=== PATIENT | male | born 1985 | race Hispanic/Latino ===

== ENCOUNTER 2020-10-25 17:55 | Emergency (ER) | payer OTHER ==
[~2020-10-25] VITALS: Ht 193 cm; Wt 80.7 kg
[2020-10-25] MEDS ORDERED: BASAGLAR K100 UNIT/1 SQ (19:25)
[2020-10-25] MEDS ORDERED: FUROSEMIDE20 MG PO (19:25)
[2020-10-25] MEDS ORDERED: GLUCOPHAGE500 MG PO (19:26)
--- OUTSIDE RECORDS SUMMARY | 2020-10-25 20:14 | XMS ---
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 E.Stefania VISIT COUNT (12 MO.) [address] TOTAL 4 NOTE: Visits indicate total known visits. ED/UCC VISIT TRACKING (12 MO.) 10/25/2020 17:57 [facility] [place] TYPE: Emergency COMPLAINT: - BODY SWELLING, VOMITING, ABD PAIN 10/15/2020 20:03 [facility] [place] TYPE: Emergency DIAGNOSES: - Hyperglycemia, unspecified - SHORTNESS OF BREATH - Heart failure, unspecified - Other stimulant abuse, uncomplicated [facility]PLAINT: - Walk In DIAGNOSES: 0. Procedure and treatment not carried out due to patient leaving prior to being seen by health care provider 1. Procedure and treatment not carried out due to patient leaving prior to being seen by health care provider 08/24/2020 05:55 Mehdi Hillman [place] TYPE: Emergency COMPLAINT: - Shortness of Breath - ABDOMINAL DISTENSION GASEOUS - OTHER CHEST PAIN - SHORTNESS OF BREATH DIAGNOSES: 0. Shortness of breath 1. Anxiety disorder, unspecified 5. Dyspnea, unspecified 6. Peptic ulcer, site unspecified, unspecified as acute or chronic, without hemorrhage or perforation 7. Nicotine dependence, unspecified, uncomplicated 8. CONTACT W \E\T\E\ (SUSP) EXPOS COVID-19 INPATIENT VISIT TRACKING (12 MO.) No inpatient visits to display in this time frame [id number]
== END 2020-10-25 21:12 | disposition home or self-care (01) ==
LOC: ED 17:55
DX: I50.9 Heart failure, unspecified (principal); F15.10 Other stimulant abuse, uncomplicated; F17.200 Nicotine dependence, unspecified, uncomplicated; Z79.899 Other long term (current) drug therapy; Z79.4 Long term (current) use of insulin; E11.9 Type 2 diabetes mellitus without complications
CPT/HCPCS: 80053; 83880; 85025; 99284

== ENCOUNTER 2024-09-05 21:40 | Emergency (ER) | payer OTHER ==
[~2024-09-05] VITALS: Ht 193 cm; Wt 109.3 kg
[~2024-09-05 21:40] MED LIST: BASAGLAR K100 UNIT/1 SQ; FUROSEMIDE20 MG PO; GLUCOPHAGE500 MG PO
[2024-09-05] MEDS ORDERED: ASPIRIN 81 MG CHEW PO ONE (22:00)
[2024-09-05 22:04] LABS: BASOPHILS 0.7 % (0-2); HEMATOCRIT 48.6 % (35.0-50.0); HEMOGLOBIN 16.5 g/dL (12.0-18.0); LYMPHOCYTES 12.6 % (24-44); MCH 30.6 (27-36); MCV 89.9 fl (81-99); MONOCYTES 6.6 % (0-12); NEUTROPHILS 79.1 % (39-80); PLATELET COUNT 347 K/uL (140-440); RDW 13.1 (10.5-15.0)
[2024-09-05 22:18] LABS: ALBUMIN 3.9 g/dL (3.4-5.0); ALBUMIN/GLOBULIN RATIO 0.95 (1.1-2.4); ANION GAP 11.5 (7-21); BILIRUBIN, TOTAL 0.6 ng/dL (0.2-1.0); BUN/CREATININE RATIO 14.15 (6.0-28.6); CALCIUM 9.6 mg/dL (8.5-10.1); CREATININE, SERUM 1.06 mg/dL (0.70-1.30); MAGNESIUM 1.6 mg/dL (1.8-2.4); POTASSIUM 4.5 mmol/L (3.5-5.1)
[2024-09-05 23:47] VITALS: BP 116/78
--- NOTE | 2024-09-08 14:42 | EKG ---
[facility] [address] [place], [place] [address] Signed Normal sinus rhythm Rightward axis Prolonged QT Abnormal ECG No previous ECGs available Confirmed by Katherine Patten MD ([id number]) on 09/08/2024 2:42:12 PM Electronically Signed By: KATHERINE PATTEN MD 09/08/24 1442 PATIENT NAME: ALBINA CHAUDHARI Electrocardiogram DATE OF : 85 PHYSICIAN: KATHERINE PATTEN MD REPORT #: [id number] REPORT IS CONFIDENTIAL AND NOT TO BE RELEASED WITHOUT AUTHORIZATION
== END 2024-09-05 23:47 | disposition other institution, planned readmission (95) ==
LOC: ED 21:40
PROVIDERS: Internal Medicine
DX: R07.89 Other chest pain (principal); F41.0 Panic disorder [episodic paroxysmal anxiety]; I11.0 Hypertensive heart disease with heart failure; I50.9 Heart failure, unspecified; E11.9 Type 2 diabetes mellitus without complications; H54.7 Unspecified visual loss; F17.200 Nicotine dependence, unspecified, uncomplicated; Z79.84 Long term (current) use of oral hypoglycemic drugs
CPT/HCPCS: 36415; 71045; 80053; 80307; 83735; 83880; 84484; 85025; 93005; 93010; 99285-25; A9270

== ENCOUNTER 2025-06-17 02:37 | Emergency (ER) | payer SELFPAY ==
[~2025-06-17] VITALS: Ht 193 cm; Wt 6.8 kg
[2025-06-17 03:24] LABS: BASOPHILS 0.7 % (0.2-1.2); EOSINOPHILS 1.5 % (0.8-7.0); LYMPHOCYTES 34.7 % (21.8-53.1); MCH 30.9 PG (25.7-32.2); MCHC 34.4 g/dL (32.3-36.5); MCV 89.8 fL (79.0-92.2); MONOCYTES 10.4 % (5.3-12.2); NEUTROPHILS 52.2 % (34.0-67.9); RBC 5.21 M/uL (4.63-6.08)
[2025-06-17 03:42] LABS: ALT (SGPT) 39.0 U/L (14-59); AST (SGOT) 31.0 U/L (15-37); GLOMERULAR FILTRATION RATE,EST 112.0 mL/min (>60); PROTEIN, TOTAL 7.7 g/dL (6.4-8.2); UREA NITROGEN 16.0 mg/dL (7-18)
[2025-06-17 06:08] VITALS: BP 137/107
== END 2025-06-17 06:15 | disposition left against medical advice (07) ==
LOC: ED 02:37
PROVIDERS: Internal Medicine
DX: H44.40 Unspecified hypotony of eye (principal); H53.132 Sudden visual loss, left eye; E11.9 Type 2 diabetes mellitus without complications; I50.9 Heart failure, unspecified; F17.200 Nicotine dependence, unspecified, uncomplicated; Z79.84 Long term (current) use of oral hypoglycemic drugs; Z53.29 Procedure and treatment not carried out because of patient's decision for other reasons
CPT/HCPCS: 36415; 70450; 70496; 70498; 80053; 83036; 85025; 99284-25; Q9967